=== PATIENT | male | born 1960 | race Caucasian/White ===

== ENCOUNTER 2017-09-03 23:22 | Inpatient (IN) | payer BC ==
[~2017-09-03] VITALS: Ht 185.4 cm; Wt 151.5 kg
[2017-09-03] MEDS ORDERED: HYDROmorphone 1 MG/ML, 1ML IVPush PRN (23:30)
[2017-09-03] MEDS ORDERED: SODIUM CHLORIDE FLUSH 10ML SYR IVF ONE (23:30)
[2017-09-03] MEDS ORDERED: PROMETHAZINE 25 MG/ML, 1ML IM ONE (23:30)
[2017-09-03] MEDS ORDERED: SODIUM CHLORIDE 0.9% 1,000ML IVBOLUS ONE (23:30)
[2017-09-03] MEDS ORDERED: PLEASE ENTER ALLERGIES MC SCH (23:45)
[2017-09-03] MEDS ORDERED: HYDROmorphone 1 MG/ML, 1ML ONE (23:49)
[2017-09-03 23:52] LABS: MEAN CORPUSCULAR HEMOGLOBIN 31.9 pg (27.5-34.5); MEAN CORPUSCULAR HGB CONC 33.6 g/dL (33.2-36.2); MEAN PLATELET VOLUME 8.6 fL (7.4-10.4); PLATELET COUNT 340 x10^3/uL (130-400); RED BLOOD COUNT 4.62 x10^6/uL (4.38-5.82); RED CELL DISTRIBUTION WIDTH 13.8 % (9.4-14.8)
[2017-09-04 00:05] LABS: ALANINE AMINOTRANSFERASE 15 U/L (12-78); ALBUMIN 2.2 g/dL (3.4-5.0); ANION GAP 9 mmol/L (5-15); CHLORIDE 105 mmol/L (98-107); CREATININE 1.96 mg/dL (0.7-1.3)
[2017-09-04 00:08] LABS: ALKALINE PHOSPHATASE 62 U/L (45-117); BILIRUBIN,TOTAL 1.7 mg/dL (0.2-1.0); TOTAL PROTEIN 6.1 g/dL (6.4-8.2)
[2017-09-04 00:17] LABS: BASOPHILS # (AUTO) 0.03 x10^3/uL (0-0.1); BASOPHILS % (AUTO) 0 % (0-1); EOSINOPHILS # (AUTO) 0.01 x10^3/uL (0-0.4); EOSINOPHILS % (AUTO) 0 % (1-7); LYMPHOCYTES # (AUTO) 1.09 x10^3/uL (1-3.4); LYMPHOCYTES % (AUTO) 3 % (22-44); MD SCAN; MONOCYTES # (AUTO) 2.47 x10^3/uL (0.2-0.8); MONOCYTES % (AUTO) 7 % (2-9); NEUTROPHILS # (AUTO) 29.83 x10^3/uL (1.8-6.8); NEUTROPHILS % (AUTO) 89 % (42-75)
[2017-09-04] MEDS ORDERED: CEFOTETAN PMX 1GM/50ML 50 ML ONE (01:09)
[2017-09-04] MEDS ORDERED: CEFOTETAN PMX 1GM/50ML 50 ML IVPB ONE (01:30)
[2017-09-04] MEDS ORDERED: AZITHROMYCIN 500 MG in SODIUM CHLORIDE 0.9% 250 ML IV ONE (01:30)
[2017-09-04 02:12] VITALS: BP 95/56
[2017-09-04] MEDS ORDERED: PROMETHAZINE 25 MG/ML, 1ML IM PRN (05:00)
[2017-09-04] MEDS ORDERED: ONDANSETRON 2MG/ML, 2ML IVPush PRN (05:00)
[2017-09-04] MEDS ORDERED: hydrALAzine 20 MG/ML, 1ML IVPush PRN (05:00)
[2017-09-04] MEDS ORDERED: ACETAMINOPHEN 325 MG TABLET PO PRN (05:00)
[2017-09-04] MEDS ORDERED: OMNIPAQUE 350 MG/ML, 100ML BOTTLE ONE (05:30)
[2017-09-04] MEDS: morphine SULFATE 10 MG/ML, 1ML IVPush PRN ×3 (07:54→22:18)
[2017-09-04] MEDS: POTASSIUM CHLORIDE 20 MEQ in LACTATED RINGERS 1,000 ML IV SCH ×3 (07:55→23:46)
[2017-09-04 08:30] VITALS: BP 101/39
[2017-09-04 12:39] VITALS: BP 113/67
[2017-09-04 13:34] LABS: MICROSCOPIC INDICATED
[2017-09-04 13:43] LABS: CULTURE INDICATED? NO
[2017-09-04 18:58] VITALS: BP 109/52
[2017-09-05 02:55] VITALS: BP 106/55
[2017-09-05 05:21] LABS: MEAN CORPUSCULAR HEMOGLOBIN 32.8 pg (27.5-34.5); MEAN CORPUSCULAR HGB CONC 33.6 g/dL (33.2-36.2); MEAN CORPUSCULAR VOLUME 97.7 fL (81-97); MEAN PLATELET VOLUME 8.7 fL (7.4-10.4); PLATELET COUNT 258 x10^3/uL (130-400); RED BLOOD COUNT 4.18 x10^6/uL (4.38-5.82); RED CELL DISTRIBUTION WIDTH 14.3 % (9.4-14.8)
[2017-09-05 05:24] LABS: CHLORIDE 107 mmol/L (98-107)
[2017-09-05 05:45] LABS: ALANINE AMINOTRANSFERASE 15 U/L (12-78); ALBUMIN 2.1 g/dL (3.4-5.0); ALKALINE PHOSPHATASE 73 U/L (45-117); ANION GAP 8 mmol/L (5-15); BILIRUBIN,TOTAL 0.8 mg/dL (0.2-1.0); CALCIUM 7.9 mg/dL (8.5-10.1); CREATININE 2.35 mg/dL (0.7-1.3); TOTAL PROTEIN 5.9 g/dL (6.4-8.2)
[2017-09-05 05:51] LABS: MD YES
[2017-09-05 05:52] LABS: BANDS%(MANUAL) 3 % (0-7); LYMPH#(MANUAL) 1.83 x10^3/uL (1-3.4); LYMPHS% (MANUAL) 7 % (22-44); SEG#(MANUAL) 20.88 x10^3/uL (1.8-6.8); SEGS% (MANUAL) 80 % (42-75)
[2017-09-05 05:53] LABS: BAND#(MANUAL) 0.78 x10^3/uL; MONOS#(MANUAL) 2.61 x10^3/uL (0.3-2.7); MONOS% (MANUAL) 10 % (2-9)
[2017-09-05 05:54] LABS: <PLATELET ESTIMATE> ADEQUATE; <PLT MORPHOLOGY> NORMAL PLT MORPH; <RBC MORPHOLOGY> NORMAL
[2017-09-05] MEDS: POTASSIUM CHLORIDE 20 MEQ in LACTATED RINGERS 1,000 ML IV SCH ×2 (06:31→18:52)
[2017-09-05 07:53] VITALS: BP 111/53
[2017-09-05] MEDS: CEFTRIAXONE PMX 2GM/50ML 50 ML IV SCH (08:52)
[2017-09-05] MEDS: METRONIDAZOLE PMX 500MG/100ML 100 ML IV SCH ×3 (09:33→21:22)
[2017-09-05 12:49] VITALS: BP 124/78
[2017-09-05 18:31] VITALS: BP 131/74
[2017-09-05] MEDS: morphine SULFATE 10 MG/ML, 1ML IVPush PRN (18:56)
[2017-09-06 00:38] VITALS: BP 127/68
[2017-09-06] MEDS: METRONIDAZOLE PMX 500MG/100ML 100 ML IV SCH ×4 (03:26→21:26)
[2017-09-06] MEDS: POTASSIUM CHLORIDE 20 MEQ in LACTATED RINGERS 1,000 ML IV SCH ×2 (03:26→15:20)
[2017-09-06 07:08] VITALS: BP 112/70
[2017-09-06 07:29] LABS: MEAN CORPUSCULAR VOLUME 96.9 fL (81-97); MEAN PLATELET VOLUME 8.6 fL (7.4-10.4); PLATELET COUNT 268 x10^3/uL (130-400); RED BLOOD COUNT 3.99 x10^6/uL (4.38-5.82); RED CELL DISTRIBUTION WIDTH 14.2 % (9.4-14.8)
[2017-09-06 07:32] LABS: ANION GAP 11 mmol/L (5-15); CHLORIDE 106 mmol/L (98-107)
[2017-09-06 07:35] LABS: ALANINE AMINOTRANSFERASE 16 U/L (12-78); ALKALINE PHOSPHATASE 75 U/L (45-117); BILIRUBIN,TOTAL 0.5 mg/dL (0.2-1.0); CREATININE 1.42 mg/dL (0.7-1.3); TOTAL PROTEIN 6.1 g/dL (6.4-8.2)
[2017-09-06] MEDS: CEFTRIAXONE PMX 2GM/50ML 50 ML IV SCH (07:45)
[2017-09-06 07:50] LABS: BASOPHILS # (AUTO) 0.05 x10^3/uL (0-0.1); BASOPHILS % (AUTO) 0 % (0-1); EOSINOPHILS # (AUTO) 0.15 x10^3/uL (0-0.4); EOSINOPHILS % (AUTO) 1 % (1-7); LYMPHOCYTES # (AUTO) 1.28 x10^3/uL (1-3.4); LYMPHOCYTES % (AUTO) 7 % (22-44); MD SCAN; MONOCYTES # (AUTO) 1.38 x10^3/uL (0.2-0.8); MONOCYTES % (AUTO) 7 % (2-9); NEUTROPHILS # (AUTO) 16.33 x10^3/uL (1.8-6.8); NEUTROPHILS % (AUTO) 85 % (42-75)
[2017-09-06 12:36] VITALS: BP 118/55
[2017-09-06] MEDS: DULOXETINE 30 MG CAPSULE.DR PO SCH (15:27)
[2017-09-06] MEDS: morphine SULFATE 10 MG/ML, 1ML IVPush PRN (19:49)
[2017-09-06 20:13] VITALS: BP 151/78
[2017-09-07] MEDS: POTASSIUM CHLORIDE 20 MEQ in LACTATED RINGERS 1,000 ML IV SCH ×2 (01:48→10:53)
[2017-09-07 02:17] VITALS: BP 162/73
[2017-09-07] MEDS: METRONIDAZOLE PMX 500MG/100ML 100 ML IV SCH ×2 (03:42→08:30)
[2017-09-07 05:52] LABS: MEAN CORPUSCULAR HEMOGLOBIN 31.9 pg (27.5-34.5); MEAN CORPUSCULAR HGB CONC 33.2 g/dL (33.2-36.2); MEAN PLATELET VOLUME 8.4 fL (7.4-10.4); PLATELET COUNT 254 x10^3/uL (130-400); RED BLOOD COUNT 3.76 x10^6/uL (4.38-5.82); RED CELL DISTRIBUTION WIDTH 13.8 % (9.4-14.8)
[2017-09-07 05:59] LABS: ALBUMIN 2.1 g/dL (3.4-5.0); ANION GAP 7 mmol/L (5-15); CALCIUM 8.3 mg/dL (8.5-10.1); CHLORIDE 108 mmol/L (98-107); CREATININE 1.15 mg/dL (0.7-1.3)
[2017-09-07 06:12] LABS: BASOPHILS # (AUTO) 0.06 x10^3/uL (0-0.1); BASOPHILS % (AUTO) 0 % (0-1); EOSINOPHILS # (AUTO) 0.25 x10^3/uL (0-0.4); EOSINOPHILS % (AUTO) 2 % (1-7); LYMPHOCYTES # (AUTO) 1.62 x10^3/uL (1-3.4); LYMPHOCYTES % (AUTO) 12 % (22-44); MD SCAN; MONOCYTES # (AUTO) 1.43 x10^3/uL (0.2-0.8); MONOCYTES % (AUTO) 11 % (2-9); NEUTROPHILS # (AUTO) 9.76 x10^3/uL (1.8-6.8); NEUTROPHILS % (AUTO) 74 % (42-75)
[2017-09-07] MEDS: CEFTRIAXONE PMX 2GM/50ML 50 ML IV SCH (07:26)
[2017-09-07] MEDS: DULOXETINE 30 MG CAPSULE.DR PO SCH (08:01)
[2017-09-07 08:22] VITALS: BP 128/79
[2017-09-07] MEDS ORDERED: METR500T PO (10:19)
[2017-09-07] MEDS ORDERED: CIPR500T3 PO (10:19)
[2017-09-07] MEDS ORDERED: DULOXETINE 30 MG CAPSULE.DR PO SCH (15:00)
== END 2017-09-07 13:05 | disposition home or self-care (01) | DRG 385 ==
LOC: ED 23:59 → EDIP 09-04 01:15 → 4NOR 09-04 01:50 → DCLOUNGE 09-07 12:46
PROVIDERS: ADMIT Hospitalist; ATTEND Hospitalist
DX: K51.00 Ulcerative (chronic) pancolitis without complications (principal); E43 Unspecified severe protein-calorie malnutrition; N17.0 Acute kidney failure with tubular necrosis; J15.9 Unspecified bacterial pneumonia; I27.21 Secondary pulmonary arterial hypertension; R65.10 Systemic inflammatory response syndrome (SIRS) of non-infectious origin without acute organ dysfunction; K56.7 Ileus, unspecified; A09 Infectious gastroenteritis and colitis, unspecified; Z68.41 Body mass index [BMI] 40.0-44.9, adult; E86.0 Dehydration; I10 Essential (primary) hypertension; E66.9 Obesity, unspecified; M79.7 Fibromyalgia; N14.1 Nephropathy induced by other drugs, medicaments and biological substances; T50.8X5A Adverse effect of diagnostic agents, initial encounter; Y92.89 Other specified places as the place of occurrence of the external cause; Z89.021 Acquired absence of right finger(s)
CPT/HCPCS: 36415; 71045; 74177; 80048; 80053; 81001; 82040; 83605; 83690; 83735; 84100; 85025; 87040; 89055; 93005; 93306; 96374; 96375; J0696; J1170; J3480; Q9967; J2270; J7030; J7120; S0074